=== PATIENT | male | born 1955 | race Caucasian/White ===

== ENCOUNTER → 2017-01-25 | Outpatient (CLI) | payer OTHER ==
[2017-01-25 13:27] LABS: HEMOGLOBIN 15.6 gm/dl (14.0-17.5); RED BLOOD COUNT 4.75 M/UL (4.20-5.50); WHITE BLOOD COUNT 4.5 K/UL (4.5-11.0)
[2017-01-25 13:47] LABS: BUN/CREATININE RATIO 15 (0-10)
== END ==
LOC: LAB 12:00
PROVIDERS: Nurse Practitioner
DX: Z12.5 Encounter for screening for malignant neoplasm of prostate (principal); M10.9 Gout, unspecified; F41.9 Anxiety disorder, unspecified; E78.5 Hyperlipidemia, unspecified; I10 Essential (primary) hypertension; M13.80 Other specified arthritis, unspecified site
CPT/HCPCS: 36415; 80053; 80061; 84153; 84436; 84443; 84480; 84550; 85025; 86039; 86431

== ENCOUNTER → 2017-02-14 | Outpatient (CLI) | payer OTHER | LOC: LAB 11:56 | DX: R73.09 Other abnormal glucose (principal); M10.9 Gout, unspecified | CPT/HCPCS: 36415; 83036; 84550 ==